=== PATIENT | female | born 1940 | race Caucasian/White ===

== ENCOUNTER → 2018-04-22 09:34 | Outpatient (CLI) | payer MEDICARE, OTHER, SELFPAY ==
--- NOTE | 2018-04-22 | DI.CT.S_ITS ---
PROCEDURE: CT CHEST HIGH RESOLUTION INDICATIONS: RESTRICTIVE LUNG DISEASE TECHNIQUE: Noncontrast 1.0 and 5.0 mm thick contiguous axial sections from the pulmonary apex to the posterior costophrenic angles, with 7 mm thick coronal and sagittal MIP reformats. 1 mm thick dynamic expiratory images acquired through the upper, mid, and lower lungs. 1.0 mm thick axial sections acquired from the shivam to the posterior costophrenic angles in the prone end-inspiration position. For radiation dose reduction, the following was used: automated exposure control, adjustment of mA and/or kV according to patient size. COMPARISON: None. FINDINGS: Image quality: Excellent. Lungs: There are no areas of consolidation or pleural effusions. No pneumothorax. Central airways appear patent. There are numerous bilateral subpleural and pulmonary nodules measuring up to 5 mm in diameter. In the central region of the posterior segment right lower lobe, series 10/image 143, there is an irregular 9 mm pulmonary nodule with surrounding groundglass opacity that is indeterminate activity and chronicity. Dynamic imaging shows no localized air-trapping. Pleura: No pleural effusions or pneumothorax. Mediastinum: Heart size is normal. No pericardial effusion. Thoracic aorta and central pulmonary arteries are normal in size. Esophagus is normal in caliber. The thyroid has the appearance of bilateral nodules including a 14 mm hypodense nodule on the right. Bones and chest wall: No suspicious bony lesions. No vertebral body compression fractures. Abdomen: Visualized upper abdominal solid organs and bowel loops appear normal. IMPRESSION: 1. Multiple small less than 6 mm pulmonary nodules are present. These likely represent residual of previous infection but are indeterminate and a followup noncontrast CT chest in 6-12 months is advised. 2. Larger nodule in the right lower lobe is associated with mild groundglass opacities could represent an area of active infection/inflammation for clinical/laboratory correlation. 2 view chest is also recommended for baseline evaluation. 3. There appear to be bilateral thyroid nodules for which thyroid ultrasound imaging is suggested for better evaluation. Dictated by: Luke Betancourt M.D. on 04/22/2018 at 13:03 Approved by: Luke Betancourt M.D. on 04/22/2018 at 13:22
== END ==
PROVIDERS: PCP Nurse Practitioner Family; Visit Provider Internal Medicine
DX: J98.4 Other disorders of lung (principal); R91.8 Other nonspecific abnormal finding of lung field
CPT/HCPCS: 71250

== ENCOUNTER → 2020-10-06 13:00 | Outpatient (CLI) | payer MEDICARE, OTHER, SELFPAY | PROVIDERS: PCP Nurse Practitioner Family; Referring Provider Nurse Practitioner Family; Visit Provider Nurse Practitioner Family | DX: M81.0 Age-related osteoporosis without current pathological fracture (principal); Z78.0 Asymptomatic menopausal state; Z82.62 Family history of osteoporosis; Z51.81 Encounter for therapeutic drug level monitoring | CPT/HCPCS: 77080 ==

== ENCOUNTER → 2022-06-07 15:08 | Outpatient (CLI) | payer MEDICARE, OTHER, SELFPAY ==
--- NOTE | 2022-06-07 | DI.ECHO.S_ITS ---
[facility]---------+ [facility] +---------+ : : [address] : : : : [id number] : : : : Phone: [phone]+ Echocardiogram Report + + :Name: EPIFANIO LOJA Study Date: 06/07/2022 Height: 61.5 in: :[facility] ReadingLocation: Weight: 150 lb : : Gender: Female BSA: 1.7 m2 : :: 1940 Age: 81 yrs BP: 119/74 mmHg: :Reason For Study: MURMUR : :Ordering Physician: CHRISTINE, : :SUZY Hernandez Performed By: Yaneli Diaz : :Referring: SUZY KING : + + Interpretation Summary The left ventricle is normal in size. The ejection fraction is estimated to be 60-65%. The right ventricle is normal in size and function. There is mild to moderate tricuspid regurgitation. Previously mild TR. The right ventricular systolic pressure is estimated to be at least 22 mmHg based on an estimated right atrial pressure of 3 mm Hg. Mild atherosclerotic plaque(s) in the aortic arch. Procedure: A two-dimensional transthoracic echocardiogram with color flow and Doppler was performed. The study quality was technically adequate. Comparison is made with the echocardiogram of 11/20/2017. The patient was in sinus rhythm with heart rates between 65-75 bpm during the exam. Left Ventricle: The left ventricle is normal in size. Proximal septal thickening is noted. There is no thrombus. A false chord is noted (normal variant). The ejection fraction is estimated to be 60-65%. There are no focal wall motion abnormalities. Diastolic parameters suggest a relaxation abnormality of the left ventricle, consistent with probable normal filling pressures. Right Ventricle: The right ventricle is normal in size and function. Atria: The left atrial size is normal. Right atrial size is normal. There is no Doppler evidence for an interatrial shunt. Mitral Valve: The mitral valve leaflets appear borderline thickened, but open well. There is mild mitral annular calcification. The mitral valve chordae are thickened and/or calcified. There is trace mitral regurgitation. Aortic Valve: There is mild aortic valve sclerosis. The aortic valve is not well visualized. The aortic valve opens well. There is no aortic valve stenosis. No aortic regurgitation is present. Tricuspid Valve: The tricuspid valve is normal. There is mild to moderate tricuspid regurgitation. The right ventricular systolic pressure is estimated to be at least 22 mmHg based on an estimated right atrial pressure of 3 mm Hg. Pulmonic Valve: The pulmonic valve is not well seen, but is grossly normal. There is trace pulmonic regurgitation. Great Vessels: The aortic root is normal size. The dimensions of the ascending aorta are normal. Mild atherosclerotic plaque(s) in the aortic arch. The IVC is of normal diameter and collapses greater than 50% with a sniff. This suggests a low right atrial pressure of 3 mm Hg. Pericardium/ Pleura There is no pericardial effusion. There is an anterior echo-free space consistent with a fat pad. There is no pleural effusion. MMode/2D Measurements & Calculations LVIDd: 3.9 cm LVOT diam: 2.0 cm LVIDs: 2.7 cm Ao root diam: 3.2 cm FS: 30.6 % asc Aorta Diam: 3.6 cm IVSd: 0.98 cm Ao Arch Diam (Prox Trans): 3.4 cm LVPWd: 0.73 cm LV troncoso. diameter/BSA (cm/m^2): 2.3 LV sys. diameter/BSA (cm/m^2): 1.6 LA A2 area: 16.0 cm2 RA long axis: 4.0 cm LA A4 area: 15.2 cm2 RA area: 11.5 cm2 LA length (vol): 4.3 cm RA vol: 28.1 ml LA vol: 48.5 ml RA : 16.7 ml/m2 LA vol index: 28.9 ml/m2 IVC diam: 1.1 cm RVD1 (basal): 3.2 cm RVD2 (mid): 2.6 cm TAPSE: 1.7 cm Doppler Measurements & Calculations Ao V2 max: 136.6 cm/sec LVOT Max Rbandon: 126.0 cm/sec Ao V2 mean: 94.9 cm/sec LV V1 max P.4 mmHg Ao max P.5 mmHg LV V1 VTI: 25.1 cm Ao mean P.1 mmHg LAMAR(I,D): 2.6 cm2 Ao V2 VTI: 30.0 cm LAMAR(V,D): 2.9 cm2 sev ratio: 0.84 LAMAR indexed to BSA (cm^2/m^2): 1.6 MV E max brandon: 75.0 cm/sec TR max brandon: 215.5 cm/sec MV A max brandon: 101.4 cm/sec TR max P.6 mmHg MV E/A: 0.74 PA V2 max: 91.4 cm/sec Med Peak E' Brandon: 5.4 cm/sec PA V2 mean: 58.5 cm/sec E/E' med: 13.9 PA mean P.6 mmHg Lat Peak E' Brandon: 6.7 cm/sec PA pr(Accel): 24.2 mmHg E/E' lat: 11.2 E/e' average: 12.6 MV dec time: 0.32 sec SV(LVOT): 78.9 ml Reading Physician:04:18 PM
== END ==
PROVIDERS: PCP Nurse Practitioner Family; Referring Provider Nurse Practitioner Family; Visit Provider Nurse Practitioner Family
DX: I38 Endocarditis, valve unspecified (principal); I07.1 Rheumatic tricuspid insufficiency; I70.0 Atherosclerosis of aorta
CPT/HCPCS: 93306

== ENCOUNTER → 2024-11-28 10:36 | Outpatient (CLI) | payer MEDICARE, OTHER, SELFPAY ==
--- NOTE | 2024-11-28 10:38 | DI.RAD.S_ITS ---
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 FINDINGS: Lumbar Spine: Bone mineral density 0.96 g/cm2, T score -0.5, previously -2.3 Left Femoral Neck: Bone mineral density 0.69 g/cm2, T score -1.4. Previously -2.3 Left Hip: Bone mineral density 0.87 g/cm2, T score -0.6,. Previously -0.9 Fracture Risk Calculation (when applicable): 10-year fracture risk of a major osteoporotic fracture 12 percent and of a hip fracture 3.4 percent. (T score greater or equal to -1.0 to: NORMAL) (T score from -1.1 to -2.4: OSTEOPENIA) (T score less than or equal to -2.5: OSTEOPOROSIS) IMPRESSION: Osteopenia with elevated fracture risk, as described. Compared to prior however, T-scores have improved. Follow-up guidelines as follows: Osteoporosis: Consider a repeat DEXA and Vertebral Fracture Assessment (VFA) exam in 2 years or sooner if medically necessary, to reassess this patient's status. Osteopenia: Consider a repeat DEXA in 2-3 years to reassess this patient's status, or if there is a new clinical indication. Normal: Consider a repeat DEXA in 5 years or sooner, or if there is a new clinical indication. All treatment decisions require clinical judgment and consideration of individual patient factors, including patient preferences, comorbidities, previous drug use, risk factors not captured in the FRAX model (e.g., frailty, falls, vitamin D deficiency, increased bone turnover, interval significant decline in bone density ) and possible under- or over-estimation of fracture risk by FRAX. In addition, the NOF Guide recommends that FDA-approved medical therapies be considered in postmenopausal women and men age >= 50 years with a: * Hip or vertebral (clinical or morphometric) fracture * T-score of <=-2.5 at the spine or hip * Ten-year fracture probability by FRAX of >= 3% for hip fracture or >=20% for major osteoporotic fracture. Dictated by: Hakeem Carbajal M.D. on 11/28/2024 at 14:54 Approved by: Hakeem Carbajal M.D. on 11/28/2024 at 14:55
== END ==
PROVIDERS: PCP Physician Assistant; Referring Provider Physician Assistant; Visit Provider Physician Assistant
DX: M81.0 Age-related osteoporosis without current pathological fracture (principal)
CPT/HCPCS: 77080